=== PATIENT | female | born 1965 | race Caucasian/White ===

== ENCOUNTER → 2021-02-27 | Outpatient (CLI) | payer BC ==
[2021-02-27 10:41] LABS: HCT 42.2 % (34.0-46.0); HGB 14.1 gm/dL (11.4-16.0); MCH 30.7 pg (25.0-35.0); MCHC 33.4 g/dL (31.0-37.0); MCV 91.8 fL (80.0-100.0); Mean Platelet Volume 8.5; Platelet Count 254 k/uL (150-450); RDW 12.4 % (11.5-15.5); WBC 3.9 k/uL (3.8-10.6)
[2021-02-27 10:48] LABS: ALT 25 U/L (4-34); AST 23 U/L (14-36); African American GFR (CKD) >90 (>60 ml/min/1.73 sqM); Albumin 4.2 g/dL (3.5-5.0); Albumin/Globulin Ratio 1.4; Alkaline Phosphatase 68 U/L (38-126); Anion Gap 4 mmol/L; Blood Urea Nitrogen 15 mg/dL (7-17); Calcium 11.6 mg/dL (8.4-10.2); Carbon Dioxide 31 mmol/L (22-30); Chloride 105 mmol/L (98-107); Globulin 2.9 g/dL; Glucose 97 mg/dL (74-99); Non-African American GFR(CKD) >90 (>60 ml/min/1.73 sqM); Potassium 4.7 mmol/L (3.5-5.1); Sodium 140 mmol/L (137-145); Total Bilirubin 0.5 mg/dL (0.2-1.3); Total Protein 7.1 g/dL (6.3-8.2)
[2021-02-27 11:03] LABS: T4, Free (Free Thyroxine) 1.03 ng/dL (0.78-2.19)
--- NOTE | 2021-02-27 13:36 | BD ---
EXAMINATION TYPE: Axial Bone Density DATE OF EXAM: 02/27/2021 COMPARISON: NONE CLINICAL HISTORY: 56 YR OLD FEMALE......ICD-10 CODE: N95.1 POST MENOPAUSAL Height: 61.8 Weight: 175 FRAX RISK QUESTIONS: NOTHING TO NOTE HERE RISK FACTORS HISTORY OF: Postmenopausal woman: YES, AT ABOUT 54 YRS OLD Hyperparathyroidism: NO Adrenal Insufficiency: NO MEDICATIONS: Prednisone or other steroids: ON AND OFF IN THE PAST, NOTHING ROUTINE Additional Medications: VIT D Additional History: NOTHING TO NOTE HERE EXAM MEASUREMENTS: Bone mineral densitometry was performed using the [employer] System. Bone mineral density as measured about the Lumbar spine is: ----- L1-L4(G/cm2): 1.100 T Score Values are as follows: ----- L1: -0.9 ----- L2: -1.1 ----- L3: 0.0 ----- L4: -0.9 ----- L1-L4: -0.7 Bone mineral density FIRST BONE DENSITY AT [facility] Bone mineral density about the R hip (g/cm2): 0.997 Bone mineral density about the L hip (g/cm2): 0.977 T Score values are as follows: -----R Neck: -0.5 -----L Neck: -0.2 -----R Total: -0.1 -----L Total: -0.2 Bone mineral density FIRST AT [facility] FRAX%s: THERE IS A 5.1% CHANCE FOR A MAJOR OSTEOPOROTIC FX AND A 0.1% FOR HIP......PROBABILITY FOR FX IN 10 YRS TIME IMPRESSION: No evidence for osteoporosis or osteopenia NOTE: T-SCORE=SD OF THE YOUNG ADULT MEAN.
[2021-02-27 16:13] LABS: Chol/HDL Ratio 4.38 Ratio; Follicle Stimulating Hormone 82.8 mIU/mL; LDL Cholesterol,Calculated 192.6 mg/dL (0.0-131.0); Luteinizing Hormone 41.3 mIU/mL; VLDL Calculation 17.28 mg/dL (5.00-40.00)
[2021-02-27 18:28] LABS: Estradiol <5.0 pg/mL
--- NOTE | 2021-02-28 14:03 | MM ---
Reason for exam: screening (asymptomatic). Last mammogram was performed 2 years and 11 months ago. History: Patient is postmenopausal. Ultrasound-guided core biopsy, 2011. Physical Findings: A clinical breast exam by your physician is recommended on an annual basis and results should be correlated with mammographic findings. MG 3D Screening Mammo W/Cad Bilateral CC and MLO view(s) were taken. Prior study comparison: March 20, 2018, mammogram, performed at [facility]. September 03, 2016, mammogram, performed at [facility]. The breast tissue is heterogeneously dense. This may lower the sensitivity of mammography. Previous mammotome biopsy in the right breast x 2. There is chronic nodularity in the right posterior upper outer quadrant and in the left breast anteriorly. No significant changes when compared with prior studies. ASSESSMENT: Benign, BI-RAD 2 RECOMMENDATION: Routine screening mammogram of both breasts in 1 year.
== END | disposition home or self-care (01) ==
LOC: RADMAMWWP 09:27
PROVIDERS: ATTEND Obstetrics & Gynecology
DX: Z12.31 Encounter for screening mammogram for malignant neoplasm of breast (principal); Z78.0 Asymptomatic menopausal state; Z79.52 Long term (current) use of systemic steroids
CPT/HCPCS: 77063; 77067; 77080; 80053; 80061; 82670; 83001; 83002; 84439; 84443; 84479; 85027

== ENCOUNTER → 2023-03-26 | Outpatient (CLI) | payer BC ==
--- NOTE | 2023-03-27 23:53 | MM ---
Reason for Exam: Screening (asymptomatic). Last mammogram was performed 2 year(s) and 1 month(s) ago. Patient History: Menarche at age 14. First Full-Term at age 22. Postmenopausal. Currently using Estrogen and Progesterone. 2011, Ultrasound-Guided Core Biopsy. Risk Values: Keyla 5 year model risk: 1.4%. NCI Lifetime model risk: 8.3%. Prior Study Comparison: 09/03/2016 Screening Mammogram, [facility]. 03/20/2018 Screening Mammogram, [facility]. 02/27/2021 Bilateral Screening Mammogram, [facility]. Tissue Density: There are scattered fibroglandular densities. Findings: Analyzed By CAD. Microclip right breast with unchanged lower inner quadrant nodularity. Unchanged posterior superior asymmetric density on the right MLO view. In the left breast, asymmetric density anteriorly remains unchanged. On the right CC view, there is a new or increasing asymmetric density in the subareolar region for which further evaluation is recommended. Overall Assessment: Incomplete: need additional imaging evaluation, BI-RAD 0 Management: Special View Mammogram of the right breast. Diagnostic Breast Ultrasound of the right breast. Additional views to include spot 3-D CC, 3-D CC rolled, and 3-D lateral views. Targeted right breast ultrasound if any persisting abnormality. [facility] will attempt to contact patient to return for supplemental views and ultrasound if indicated. Electronically signed and approved by: Evan Flores M.D. Radiologist
== END | disposition home or self-care (01) ==
LOC: RADMAMWWP 10:02
PROVIDERS: ATTEND Obstetrics & Gynecology
DX: Z12.31 Encounter for screening mammogram for malignant neoplasm of breast (principal); Z78.0 Asymptomatic menopausal state
CPT/HCPCS: 77063; 77067

== ENCOUNTER → 2023-04-08 | Outpatient (CLI) | payer BC ==
--- NOTE | 2023-04-08 14:02 | MM ---
Reason for Exam: Additional evaluation requested from abnormal screening. Last screening mammogram was performed less than 1 month ago. Patient History: Menarche at age 14. First Full-Term at age 22. Postmenopausal. Currently using Estrogen and Progesterone. 2012, Ultrasound-Guided Core Biopsy. Risk Values: Keyla 5 year model risk: 1.4%. NCI Lifetime model risk: 8.3%. Tissue Density: Right: There are scattered fibroglandular densities. Findings: Analyzed By CAD. * Right breast asymmetry anterior depth 2.5 cm to 4.0 cm the nipple posterior nipple line persists on CC imaging measuring 8 x 4 mm. This may be superiorly on lateral medial imaging. * Left breast subtle 10 by 8mm anterior depth 2.4 cm from the nipple on cc view mass. * Right breast focal asymmetry anterior depth 2.5 cm to 4.0 cm from the nipple posterior nipple line on CC imaging measuring 8 x 4 mm. Finding likely superiorly on LM view. * Left breast subtle 10 x 8 mm anterior depth lesion 2.4 cm from the nipple on cc view. Overall Assessment: Incomplete: need additional imaging evaluation, BI-RAD 0 Management: Diagnostic Breast Ultrasound of both breasts. Results were given to the patient verbally at the time of exam. Patient should continue monthly self-breast exams. A clinical breast exam by your physician is recommended on an annual basis. This exam should not preclude additional follow-up of suspicious palpable abnormalities. Note on Keyla scores and lifetime risk: 1. A Keyla score greater than 3% is considered moderate risk. If this is the case, consider specialist referral to assess eligibility for a risk reducing agent. 2. If overall lifetime risk for the development of breast cancer is 20% or higher, the patient may qualify for future screening with alternating mammogram and breast MRI. Electronically signed and approved by: Pj Jack DO
--- NOTE | 2023-04-08 14:31 | USB ---
Patient History: Menarche at age 14. First Full-Term at age 22. Postmenopausal. Currently using Estrogen and Progesterone. 2011, Ultrasound-Guided Core Biopsy. Risk Values: Keyla 5 year model risk: 1.4%. NCI Lifetime model risk: 8.3%. Technique: Method: Targeted. Prior Study Comparison: 03/20/2018 Screening Mammogram, [facility]. 02/27/2021 Bilateral Screening Mammogram, [facility]. 03/26/2023 Bilateral MG 3D screening mammo w/cad, [facility]. Findings: The upper outer quadrant of the left breast, the upper section of the breast of the right breast, the axilla of both breasts and the retroareolar of both breasts were scanned. Technique utilized:US breast workup limited AYAN Image; Ultrasound imaging of: Area of concern, retroareolar region and axilla. Right breast 11:00 3 cm from nipple lesion measuring 5 x 4 x 3 mm. Left breast 1:00 3 cm from nipple 11 x 13 x 5 mm hypoechoic lesion. Overall Assessment: Probably benign, BI-RAD 3 Management: Diagnostic Breast Ultrasound of the right breast in 6 months. Diagnostic Mammogram of the right breast in 6 months. Short-term follow-up for the right breast lesion at 11:00 3 cm the nipple. It is unclear whether this correlates with finding on mammography same day. A clinical breast exam by your physician is recommended on an annual basis and results should be correlated with mammographic findings. This exam should not preclude additional follow-up of suspicious palpable abnormalities. Results were given to the patient verbally at the time of exam. Electronically signed and approved by: Pj Jack DO
== END | disposition home or self-care (01) ==
LOC: RADMAMWWP 13:24
PROVIDERS: ATTEND Obstetrics & Gynecology
DX: N64.89 Other specified disorders of breast (principal); R92.321 Mammographic fibroglandular density, right breast; Z78.0 Asymptomatic menopausal state
CPT/HCPCS: 77061; 77065

== ENCOUNTER → 2023-11-12 | Outpatient (CLI) | payer BC ==
[2023-11-12 14:51] VITALS: BP 127/78; PULSE 69; RESP 16; TEMP 98.3
--- NOTE | 2023-11-12 15:50 | P.HPOB ---
History of Present Illness H&P Date: 11/12/23 Chief Complaint: She presents in need of a 6-month right breast mammogram and ultrasound. This is a 58-year-old G3, P3 with an LMP of 2016. The patient is here to establish with this office and to have the appropriate follow-up from her March 2023 screening mammogram and right breast workup. On 03/26/2023 she had a screening mammogram which did require a right breast workup. Breast ultrasound and right mammogram were performed and were probably benign on 04/08/2023. 6-month right diagnostic mammogram with right breast ultrasound were recommended. She previously saw Dr. Jean for her gynecologic care and was last seen about 7 months ago. She states she is not due for her annual well woman examination and just needs her right breast imaging follow-up at this time. She is without gynecologic complaints and denies any postmenopausal bleeding. She is status post endometrial ablation in 2014 and has been amenorrheic since about 2015. She states she took HRT for about 1 year and this was started because of low energy levels through a wellness doctor and not from Dr. Jean. The HRT included estrogen, testosterone and progesterone. She discontinued it in March 25 1:23 year. She does not intend to restart this HRT. Review of Systems The patient has gained 10 pounds over the last year. She denies respiratory, cardiac, or G.I. problems. Past Medical History Past Medical History: Sleep Apnea/CPAP/BIPAP Additional Past Medical History / Comment(s): HX OF (1) SEIZURE AFTER CHILDBIRTH. This environmental allergies and sinus problems. 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 History of uterine fibroids the largest of which was 3.6 cm on 03/14/2015. She used HRT for 1 year up until March 2023. History of Any Multi-Drug Resistant Organisms: None Reported Past Surgical History: No Surgical Hx Reported, Breast Surgery, Uterine Ablation Additional Past Surgical History / Comment(s): COLONOSCOPY 05/2023(next after 5yr). Breast biopsies. Past Anesthesia/Blood Transfusion Reactions: No Reported Reaction, Motion Sickness Past Psychological History: No Psychological Hx Reported Smoking Status: Never smoker Past Alcohol Use History: Occasional Past Drug Use History: None Reported - Past Family History Father Family Medical History: Congestive Heart Failure (CHF) Additional Family Medical History / Comment(s): . Mother Family Medical History: Cancer Additional Family Medical History / Comment(s): Ovarian cancer. . Medications and Allergies Home Medications Medication Instructions Recorded Confirmed Type Ibuprofen [Motrin] 600 mg PO Q6HR PRN #40 tab 04/18/15 11/12/23 Rx Allergies Allergy/AdvReac Type Severity Reaction Status Date / Time adhesive Allergy Unknown RED , Verified 11/12/23 14:48 IRRITATED SKIN latex Allergy Unknown IRRITATED Verified 11/12/23 14:48 SKIN EXTREME COLD AdvReac Severe Rash/Hives, Uncoded 11/12/23 14:48 SWELLING IN HANDS Exam Vital Signs Temp Pulse Resp BP Pulse Ox 11/12/23 14:48 98.3 F 69 16 127/78 97 Intake and Output 11/12/23 11/12/23 11/12/23 06:59 14:59 22:59 Other: Weight 85.275 kg This is a well-developed, well-nourished, white female who is alert and oriented x 3 in no acute distress. A more complete physical examination will be deferred until her annual well woman examination in approximately 6 months. She is declining additional physical exam at this time since she states she is not due for her yearly visit. Impression: 1. 58-year-old menopausal female who had a screening mammogram on 03/26/2023 which did require a right breast workup. The right breast workup on 04/08/2023 was probably benign. 2. History of uterine fibroids with the largest measuring 3.6 cm in 2014. 3. Patient is status post endometrial ablation in 2014. 4. Family history of ovarian cancer in her mother. Plan: 1. The patient is due for a right diagnostic mammogram and right breast ultrasound. The order slip was given to the patient for this. 2. I have recommended yearly pelvic ultrasounds because of her mother's history of ovarian cancer. She would like to initiate this after her annual well woman examination in approximately 6 months. 3. She will return in approximately 6 months for her annual well woman exami [facility], [place] and for her bilateral mammogram. Total time spent with the patient 20 minutes.
== END | disposition home or self-care (01) ==
LOC: RADMAMWWP 14:03
PROVIDERS: ATTEND Obstetrics & Gynecology
DX: Z53.9 Procedure and treatment not carried out, unspecified reason (principal)

== ENCOUNTER → 2023-11-27 | Outpatient (CLI) | payer BC ==
--- NOTE | 2023-11-27 09:15 | MM ---
Reason for Exam: Follow-up at short interval from prior study. Last screening mammogram was performed 8 month(s) ago. Patient History: Menarche at age 14. First Full-Term at age 22. Postmenopausal. Currently using Estrogen and Progesterone. 2012, Ultrasound-Guided Core Biopsy. Risk Values: Keyla 5 year model risk: 1.4%. NCI Lifetime model risk: 8.3%. Prior Study Comparison: 02/27/2021 Bilateral Screening Mammogram, [facility]. 03/26/2023 Bilateral MG 3D screening mammo w/cad, [facility]. 04/08/2023 Right MG 3D work up w/cad RT, [facility]. Tissue Density: Right: The breasts are heterogeneously dense, which may obscure small masses. Findings: Analyzed By CAD. Chronic nodularity persists without significant change. No suspicious calcifications. Ultrasound at the 11:00 position same area as previously. Overall Assessment: Incomplete: need additional imaging evaluation, BI-RAD 0 Management: Diagnostic Breast Ultrasound of the right breast. . Results were given to the patient verbally at the time of exam. Patient should continue monthly self-breast exams. A clinical breast exam by your physician is recommended on an annual basis. This exam should not preclude additional follow-up of suspicious palpable abnormalities. Note on Keyla scores and lifetime risk: 1. A Keyla score greater than 3% is considered moderate risk. If this is the case, consider specialist referral to assess eligibility for a risk reducing agent. 2. If overall lifetime risk for the development of breast cancer is 20% or higher, the patient may qualify for future screening with alternating mammogram and breast MRI. Electronically signed and approved by: Singh Leo M.D. Radiologis
--- NOTE | 2023-11-27 09:41 | USB ---
Reason for Exam: Follow-up at short interval from prior study. Patient History: Menarche at age 14. First Full-Term at age 22. Postmenopausal. Currently using Estrogen and Progesterone. 2012, Ultrasound-Guided Core Biopsy. Risk Values: Keyla 5 year model risk: 1.4%. NCI Lifetime model risk: 8.3%. Technique: Method: Targeted. Prior Study Comparison: 02/27/2021 Bilateral Screening Mammogram, [facility]. 03/26/2023 Bilateral MG 3D screening mammo w/cad, [facility]. 04/08/2023 Right MG 3D work up w/cad RT, [facility]. Findings: The upper outer quadrant of the right breast, the axilla of the right breast and the retroareolar of the right breast were scanned. Hypoechoic lesion at the right 11:00 position is slightly larger in size and currently measures 5 x 3 x 5 mm versus 4 x 3 x 4 mm previously. Tissue diagnosis is recommended. Overall Assessment: Suspicious, BI-RAD 4 Management: Ultrasound Core Biopsy of the right breast. A clinical breast exam by your physician is recommended on an annual basis and results should be correlated with mammographic findings. This exam should not preclude additional follow-up of suspicious palpable abnormalities. Results were given to the patient verbally at the time of exam. Electronically signed and approved by: Singh Leo M.D. Radiologis
== END | disposition home or self-care (01) ==
LOC: RADMAMWWP 08:47
PROVIDERS: ATTEND Obstetrics & Gynecology
DX: R92.331 Mammographic heterogeneous density, right breast (principal); R92.8 Other abnormal and inconclusive findings on diagnostic imaging of breast; Z78.0 Asymptomatic menopausal state
CPT/HCPCS: 77061; 77065

== ENCOUNTER → 2023-12-20 | Day surgery (SDC) | payer BC ==
--- NOTE | 2024-01-15 11:16 | MM ---
Reason for Exam: Post Procedure Mammogram. Last screening mammogram was performed 9 month(s) ago. Patient History: Menarche at age 14. First Full-Term at age 22. Postmenopausal. Currently using Estrogen and Progesterone. 2012, Ultrasound-Guided Core Biopsy. Risk Values: Keyla 5 year model risk: 1.4%. NCI Lifetime model risk: 8.3%. Prior Study Comparison: 03/26/2023 Bilateral MG 3D screening mammo w/cad, [facility]. 04/08/2023 Right MG 3D work up w/cad RT, [facility]. 11/27/2023 Right MG 3D diag mammo w/cad RT, [facility]. 11/27/2023 Right US breast limited RT, [facility]. Tissue Density: Right: There are scattered areas of fibroglandular density. Pathology Description: Location: 11 o'clock. Cores: 4 Skin Nicks: 1 Gauge: 13 The procedure of ultrasound guided core biopsy was explained to the patient. Benefits, alternatives, and risks were discussed. An informed consent was then obtained. A timeout was performed. The patient was placed in supine positioning for imaging and for the procedure. The overlying skin was prepped and draped in usual sterile fashion. Lidocaine was used as anesthetic into the skin and subcutaneous tissue up to area of concern in the right breast, 11:00 position. A small skin alyssa was made with surgical scalpel. Under ultrasound guidance, a 12-gauge vacuum assisted biopsy gun device was used to obtain 4 core samples. A biopsy clip was left in lesion. Hydromark butterfly core marker was placed. The patient tolerated the procedure well without any immediate complication. The patient was kept in the radiology department for short stay after the procedure and then discharged home in stable condition. Postprocedure mammogram: The patient was transferred to mammography for physician ordered post procedure mammogram for clip placement verification. Mammographic images are unavailable during PACS downtime. Impression: Successful ultrasound guided core biopsy of area of concern in the right breast, full pathology results to follow. Recommendations: 1. Recommendations are pending pathology results. Pathology Results: Result: Benign, Fibroadenoma. Pathology and radiology were reviewed. Findings are concordant. RIGHT BREAST, 11:00, BIOPSY: Compatible with sclerotic fibroadenoma. Overall Assessment: Benign Assessment: MG diagnostic mammo RT wo CAD - Right: Benign, BI-RAD 2. Management: Diagnostic Mammogram of the right breast in 6 months. Electronically signed and approved by: Buzz Beaver D.O. Radiologis
== END ==
LOC: RADUSWWP 10:16
PROVIDERS: ATTEND Surgery
DX: R92.8 Other abnormal and inconclusive findings on diagnostic imaging of breast (principal)
CPT/HCPCS: 77065

== ENCOUNTER → 2024-01-16 | Outpatient (CLI) | payer BC ==
[2024-01-16 10:31] VITALS: BP 138/80; PULSE 82; RESP 17; TEMP 98.2
--- NOTE | 2024-01-16 10:59 | P.GSCN ---
History of Present Illness Consult date: 01/16/24 Reason for Consult: mass right breast Requesting physician: Coy Oleary History of present illness: Juliet is a 58 year old female status post right bresast ultrasound core biopsy on 12-20-23 which was a sclerotic fibroandoma. This was benign specific. Her last bilateral mammogram was 03-26-23. This led to further workup and biopsy of the right breast of a lesion at 11:00. The patient did not feel anything. S he has had a core biopsy of the right breast in 2020 which was benign. She tolerated the biopsy without difficulty. No open surgery on her breast. No recent trauma or infection in her breast. caffiene: 2 cups/day nicotine: none chocolate: daily BCP: in remote past for about 5 years hormones: used them for about 1 1/2 year stopped about [address] Sweet; [place] Family History: mother: ovarian cancer at 66, from it; no genetic testing done Hormonal History: meanrache: 15 , breast fed: yes, age at first : 22 menopause: 51 Surgical History: uterine ablation for a fibroid Medical History: none Social History: nicotine: none alcohol: monthly, cocktail drugs: none Review of Systems - Constitutional Reports sweats - EENT Eyes: denies blurred vision Ears: deny: decreased hearing, tinnitus Ears, nose, mouth and throat: Denies dysphagia - Breasts bilateral: as per HPI - Cardiovascular Denies chest pain, Denies shortness of breath - Respiratory Denies cough, Denies 7 - Gastrointestinal Reports as per HPI - Genitourinary Genitourinary: Denies dysuria, Denies hematuria Menstruation: Reports postmenopausal - Musculoskeletal Reports as per HPI - Integumentary Denies rash, Denies unusual bruising - Neurological Denies headaches, Denies syncope - Psychiatric Reports as per HPI - Endocrine Reports as per HPI - Hematologic/Lymphatic Denies easy bleeding, Denies easy bruising - Allergic/Immunologic Reports as per HPI, Reports seasonal allergies Past Medical History Past Medical History: Sleep Apnea/CPAP/BIPAP Additional Past Medical History / Comment(s): HX OF (1) SEIZURE AFTER CHILDBIRTH. This environmental allergies and sinus problems. 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 History of uterine fibroids the largest of which was 3.6 cm on 03/14/2015. She used HRT for 1 year up until March 2023. History of Any Multi-Drug Resistant Organisms: None Reported Past Surgical History: Breast Surgery, Uterine Ablation Additional Past Surgical History / Comment(s): COLONOSCOPY 05/2023(next after 5yr). Breast biopsies. Past Anesthesia/Blood Transfusion Reactions: No Reported Reaction, Motion Sickness Past Psychological History: No Psychological Hx Reported Smoking Status: Never smoker Past Alcohol Use History: Occasional Past Drug Use History: None Reported - Past Family History Mother Family Medical History: Cancer Additional Family Medical History / Comment(s): Ovarian cancer. . Father Family Medical History: Congestive Heart Failure (CHF) Additional Family Medical History / Comment(s): . Medications and Allergies Home Medications Medication Instructions Recorded Confirmed Type Ibuprofen [Motrin] 600 mg PO Q6HR PRN #40 tab 04/18/15 01/16/24 Rx Loratadine [Claritin] 10 mg PO DAILY 12/02/23 01/16/24 History Allergies Allergy/AdvReac Type Severity Reaction Status Date / Time adhesive Allergy Unknown RED , Verified 01/16/24 10:28 IRRITATED SKIN latex Allergy Unknown IRRITATED Verified 01/16/24 10:28 SKIN EXTREME COLD AdvReac Severe Rash/Hives, Uncoded 01/16/24 10:28 SWELLING IN HANDS Surgical - Exam Vital Signs Temp Pulse Resp BP Pulse Ox 98.2 F 82 17 138/80 98 01/16/24 10:29 01/16/24 10:29 01/16/24 10:29 01/16/24 10:29 01/16/24 10:29 - General no distress - Eyes normal ocular movement - Neck trachea midline - Respiratory normal respiratory effort, clear to auscultation - Cardiovascular Rhythm: regular Heart Sounds: normal: S1, S2 - Abdomen Abdomen: soft, non tender, no guarding, no rigid, no rebound - Integumentary normal turgor - Neurologic no disoriented, no combative - Musculoskeletal normal gait - Psychiatric oriented to time, oriented to person, oriented to place, speech is normal, memory intact Breast Exam: BRA: 36D Inspection: bilateral grade 2 ptosis palpation: right breast: multipositional exam, no dominate masses or nodules of concern right axilla: no adenopathy of concern left breast: multipositional exam, no dominate masses or nodules of concern left axilla: no adenopathy of concern Results mammogram and ultrasound personally reviewed and interpreted Assessment and Plan Assessment: Impression: fibrocysitc breast disease right breast fibroadenoma Plan: right breast mammogram and ultrasound in 6 months with follow up follow up sooner any concerns We have discussed observation of fibroadenoma but will follow to determine if it is growing. She does not want to have it resected at this time as it is asymptomatic and not felt to be necessary. Dr. Oleary
== END ==
LOC: WWCWWP 10:14
PROVIDERS: ATTEND Surgery
DX: R92.8 Other abnormal and inconclusive findings on diagnostic imaging of breast (principal); D24.1 Benign neoplasm of right breast; N63.10 Unspecified lump in the right breast, unspecified quadrant; N60.19 Diffuse cystic mastopathy of unspecified breast; Z91.048 Other nonmedicinal substance allergy status; Z91.040 Latex allergy status; Z88.8 Allergy status to other drugs, medicaments and biological substances

== ENCOUNTER → 2024-07-29 | Outpatient (CLI) | payer BC ==
--- NOTE | 2024-07-29 12:26 | MM ---
Reason for Exam: Follow-up at short interval from prior study. Last mammogram was performed 1 year(s) and 4 month(s) ago. Patient History: Menarche at age 14. First Full-Term at age 22. Postmenopausal. Currently using Estrogen and Progesterone. 12/20/2023, Benign US biopsy breast VAD RT on the right side. 2011, Ultrasound-Guided Core Biopsy. Risk Values: Keyla 5 year model risk: 1.8%. NCI Lifetime model risk: 10.2%. Prior Study Comparison: 09/03/2016 Screening Mammogram, [facility]. 03/26/2023 Bilateral MG 3D screening mammo w/cad, [facility]. 04/08/2023 Right MG 3D work up w/cad RT, [facility]. 11/27/2023 Right MG 3D diag mammo w/cad RT, [facility]. 12/20/2023 Right MG diagnostic mammo RT wo CAD, [facility]. Tissue Density: The breasts are heterogeneously dense, which may obscure small masses. Findings: Analyzed By CAD. Surgical clip in the right breast. No suspicious calcifications or dominant mass. Chronic nodularity noted on the left breast is stable. Overall Assessment: Benign, BI-RAD 2 Management: Screening Mammogram of both breasts in 1 year. . Results were given to the patient verbally at the time of exam. Patient should continue monthly self-breast exams. A clinical breast exam by your physician is recommended on an annual basis. This exam should not preclude additional follow-up of suspicious palpable abnormalities. Note on Keyla scores and lifetime risk: 1. A Keyla score greater than 3% is considered moderate risk. If this is the case, consider specialist referral to assess eligibility for a risk reducing agent. 2. If overall lifetime risk for the development of breast cancer is 20% or higher, the patient may qualify for future screening with alternating mammogram and breast MRI. [facility], , 07/29/2024 12:10 PM. Electronically signed and approved by: Ayaan Burton M.D. Radiologis
--- NOTE | 2024-07-29 12:36 | USB ---
Reason for Exam: Follow-up at short interval from prior study. Patient History: Menarche at age 14. First Full-Term at age 22. Postmenopausal. Currently using Estrogen and Progesterone. 12/20/2023, Benign US biopsy breast VAD RT on the right side. 2011, Ultrasound-Guided Core Biopsy. Risk Values: Keyla 5 year model risk: 1.8%. NCI Lifetime model risk: 10.2%. Technique: Method: Targeted. Prior Study Comparison: 04/08/2023 Right MG 3D work up w/cad RT, [facility]. 11/27/2023 Right MG 3D diag mammo w/cad RT, [facility]. 12/20/2023 Right MG diagnostic mammo RT wo CAD, [facility]. Findings: The upper section of the breast of the right breast, the axilla of the right breast and the retroareolar of the right breast were scanned. A targeted US of 11:00 right breast and axilla, retro-areolar region were reviewed. A stable appearing 7 mm nodule at the 11:00 position with adjacent surgical clip. Tiny amount adjacent fluid. Overall Assessment: Benign, BI-RAD 2 Management: Diagnostic Mammogram of both breasts in 6 months. A clinical breast exam by your physician is recommended on an annual basis and results should be correlated with mammographic findings. This exam should not preclude additional follow-up of suspicious palpable abnormalities. Results were given to the patient verbally at the time of exam. [facility], , 07/29/2024 12:27 PM. Electronically signed and approved by: Ayaan Burton M.D. Radiologis
== END | disposition home or self-care (01) ==
LOC: RADMAMWWP 11:31
PROVIDERS: ATTEND Surgery
DX: N63.10 Unspecified lump in the right breast, unspecified quadrant (principal); R92.333 Mammographic heterogeneous density, bilateral breasts; Z78.0 Asymptomatic menopausal state
CPT/HCPCS: 77062; 77066